=== PATIENT | female | born 1955 | race Caucasian/White ===

== ENCOUNTER → 2016-04-24 | Outpatient (CLI) | payer BC ==
[~2016-04-24] MED LIST: ACET-1256 PO; ANAS1TAB19 PO; ASPI-232 PO; CALC500C70 PO; CLON1TAB3 PO; IBUP-103 PO; MULT-225 PO; OMEP20CA9 PO; ROSU20TA PO; SERT100T PO
--- NOTE | 2016-04-24 14:47 | DIAGNOSTIC IMAGING REPORT ---
RIGHT KNEE 3 VIEWS CLINICAL HISTORY: RIGHT KNEE PAIN Right pain COMPARISON: None. DISCUSSION: The bones and joint spaces appear intact. There is no evidence of fracture, dislocation or bony disease. There is no evidence for soft tissue swelling. IMPRESSION: Negative study. Electronically signed by: Percy Hinojosa M.D. 04/24/2016 2:45 PM Dictated Date/Time: 04/24/2016 2:45 PM
== END | disposition home or self-care (01) ==
LOC: C.RDSM 13:24
PROVIDERS: ATTEND Family Medicine
DX: M25.561 Pain in right knee (principal)

== ENCOUNTER → 2016-04-29 | Outpatient (CLI) | payer BC ==
[~2016-04-29] MED LIST changes: +GADAVIST IV PRN
--- NOTE | 2016-04-30 12:32 | MAMMOGRAPHY REPORT ---
BREAST MRI OF BOTH BREASTS : 04/29/2016 CLINICAL HISTORY: 60-year-old woman presents for follow-up in the breasts. She is status post left breast lumpectomy and radiation for multifocal breast cancer; surgery was performed February 2015. COMPARISON: Comparison is made to exams dated: 01/28/2016 mammogram, 02/09/2015 breast MRI, 6 breast MRI, 01/24/2015 mammogram, 01/24/2015 ultrasound biopsy, and 01/15/2015 ultrasound - [facility]. TECHNIQUE: Using a 1.5 Fernanda magnet and dedicated breast coil, multisequence axial images were obtai isidra through the breasts. After uneventful IV administration of 8 mL of Gadavist, dynamic multiphase contrast-enhanced axial images, and sagittal postcontrast were obtained. Temporal subtraction axia l images and 3-D MIP images are provided. Everything was then reviewed on a 3-D workstation, [employer]. FINDINGS: Right breast: There is minimal background parenchymal enhancement. 2 nonenhancing circumscribed oval and lobulated masses are again identified in the right breast. The first measures approximately 10 mm and is located in the 9:30 to 10:00 middle one third of the right breast. The second is in the retroareolar breast measuring 6 mm. When comparing to prior available MRIs, these haven't stable da ting back to the 02/09/2015 and are most likely benign. Another 12 month follow-up exam is recommen ded to ensure at least 2 years of stability. No other new suspicious enhancing mass, non-mass enhan cement or suspicious kinetics is identified within the right breast. There is no focal skin thicken ing or nipple retraction. No right axillary lymphadenopathy. Note is made of susceptibility artifa ct in the far superior medial right breast from the patient's Mediport. Left breast: There is minimal background parenchymal enhancement. There is evidence of previous ana laura atment of the left breast, with mild diffuse skin thickening and trabecular edema. A surgical cavit y is seen in the 12:00 and 11:00 axes of the middle and posterior left breast, which is decreasing i n size compared to the most recent prior MRI compatible with an evolving postsurgical seroma and/or hematoma. There is no evidence of a suspicious enhancing mass, non-mass enhancement or suspicious k inetics within the left breast. A few morphologically normal lymph nodes are seen in the far latera l axillary tail region of the left breast. These are also stable compared to prior MRIs. There is no suspicious left axillary lymphadenopathy. IMPRESSION: ACR-BI-RADS CATEGORY 3: PROBABLY BENIGN 1. There are expected/evolving post therapeutic changes in the left breast, without MRI evidence of malignancy. 2. There are two circumscribed lobulated masses within the right breast, in the retroareolar axis a nd 9:30 to 10:00 axis. These are stable dating back to 02/09/2015, therefore probably benign. Espinal corky, another 12 month follow-up breast MRI is recommended to ensure longer stability in the right br east, and also to ensure stability in the left breast status post treatment for breast cancer. Cont inuation of interval diagnostic mammography is also recommended. The patient will receive written notification of the results. Laureen Blanca M.D. 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
== END ==
LOC: C.MRI 06:39
PROVIDERS: ATTEND Surgery
DX: C50.212 Malignant neoplasm of upper-inner quadrant of left female breast (principal)

== ENCOUNTER → 2016-06-25 | Outpatient (CLI) | payer BC ==
[~2016-06-25] MED LIST changes: -GADAVIST IV PRN
[2016-06-25 14:38] VITALS: BP 112/57; PULSE 88; TEMP 36.6; O2SAT 96
--- NOTE | 2016-06-25 17:00 | Radiation Oncology Follow-Up ---
Radiation Oncology Follow-Up Date of Visit Jun 25, 2016. Reason For Visit 6 month follow-up Radiation Completion Date finished 10-22-2015 Diagnosis (1) Breast cancer of upper-inner quadrant of left female breast Status: Resolved Onset Date: 01/24/2015 Histology Subtype: lobular and ductal Stage: l (A multifocal) Permanent Comment: Family history of breast cancer Abnormal left breast mammogram Status post ultrasound-guided biopsy 01/24/2015 revealing infiltrating lobular carcinoma Estrogen receptor positive, progesterone receptor positive, HER-2/chandrakant positive Status post partial mastectomy and sentinel lymph node biopsy 02/23/2015 3 separate lesions identified multifocal disease 2 lesions were lobular carcinoma and one was ductal Oncotype DX evaluation scores 29, 14, and 9 Status post systemic chemotherapy with 6 cycles of TCH Will continue Herceptin for 1 year Status post completion of radiation therapy 10/22/2015 received 6240 cGy Last Edited By: Rena Holt on Dec 13, 2015 11:52 History of Present Illness Ms. Qureshi is a 59-year-old female with a family history of breast cancer. She was followed with screening mammograms that have been unremarkable. On 10/17/2013 patient underwent bilateral digital diagnostic mammogram and targeted bilateral ultrasound. A focal asymmetry had been seen previously in the middle one third of the right breast that was not felt to be significant. There were stable loosely grouped rounded microcalcifications in the medial anterior right breast which on changed and likely benign. A nodular asymmetry within the left superior breast and left lateral breast were compatible with overlapping fibroglandular tissue. This was felt to be probably benign with recommended short-term follow-up. On 05/16/2014 patient underwent bilateral digital diagnostic mammogram and targeted left breast ultrasound. This showed a hypoechoic solid 8 mm mass in the left breast at 2:30 position which correlates with the mammographic asymmetry. This was thought to possibly represent a fibroadenoma. An ultrasound- guided core needle biopsy was recommended. A small 4 mm hypoechoic mass in the left breast at 2 o'clock position likely represents a cyst with recommended aspiration. On 06/01/2014 patient underwent an ultrasound-guided biopsy of the left breast. This revealed a fibroadenoma. Case: [id number]. And aspiration of the left breast also performed on 06/01/2014. The aspirate confirmed the cystic nature of this lesion and no further workup was recommended. Recommended repeat mammogram in 6 months. On 01/15/2015 patient underwent unilateral left digital diagnostic mammogram and targeted left breast ultrasound. This revealed a newly visualized spiculated 7 mm mass in the left superior posterior breast mammographically. A 7 mm hypoechoic mass was seen in the left breast 11 o'clock position on ultrasound correlating to the spiculated mass. Another questionable 5 mm mass was seen in the left breast at the 12 o'clock position and 2 areas of possible architectural distortion are also seen in the left breast on spot compression cc views. These were felt to be moderate suspicion for malignancy and given a BI-RADS Category 4 cc with recommended biopsy. On 01/24/2015 patient underwent an ultrasound-guided biopsy of the left breast 11 o'clock position. This identified an infiltrating lobular carcinoma histologic grade 2 of 3. The tumor measured up to 0.7 cm a core biopsy. No DCIS or LCIS was identified. Lymphovascular invasion was identified. Estrogen receptors were positive (90%, strong). Progesterone receptors were positive (90%, strong). HER-2/chandrakant overexpression was equivocal 2+ ) week, 40%, the HER-2/chandrakant by FISH analysis was negative. Case: [id number]. The patient was seen by Dr. Zhao Chirinos to discuss the surgical treatment options. He recommended further evaluation of the breast tissue with lateral breast MRIs. These were performed on 02/09/2015. This also showed an enhancing 7 mm mass in the left breast at the 11:00 posterior depth consistent with the biopsy-proven malignancy. Multiple, at least 4, other irregular enhancing masses are noted in the left upper inner quadrant from the 10 to 12 o'clock position which are highly suspicious for multifocal malignancy. Recommend second look ultrasound and possible ultrasound-guided biopsies of these masses in order to determine the extent of the disease if breast conserving therapy was being considered. In enhancing 4 mm focus was noted in the left breast at the 2 o'clock position which may represent normal background. There was no evidence on MRI of malignancy in the right breast. The patient after discussion of the treatment options ultimately agreed to proceed with a breast conserving therapy.. This procedure was performed on 02/23/2015. A partial mastectomy of the left breast and sentinel node biopsy was performed. The partial mastectomy specimen confirmed multifocal infiltrative lobular carcinoma grade 1. 3 separate lesions were identified. These were distinct and consistent with multifocal disease. One measured 1.0 x 0.7 x 0.5 cm and was an infiltrative lobular carcinoma. The second measured 0.8 x 0.5 x 0.5 cm and also was an infiltrative lobular carcinoma. The third lesion was 0.4 cm and was an infiltrative ductal carcinoma versus lobular. There was no DCIS present. There was DCIS identified area in the margins were evaluated. The lobular carcinoma was present 1 mm from the black inked deep margin of the specimen. The second lesion was located 0.5 cm from the black inked deep margin of the specimen. The carcinoma field to extend to the actual inked margins. There was no lymphovascular or perineural invasion. One sentinel lymph node was identified and showed no evidence of metastatic disease. Evaluations of the foci of carcinomas and blocks B 4 and B 7 for HER-2/chandrakant amplification by FISH was performed. These results were positive for the B 4 Loc and negative for the B 7 block. Therefore the lesion measuring 0.8 x 0.5 x 0.5 cm representing an infiltrative lobular carcinoma was positive for estrogen, progesterone and HER-2/chandrakant protein. Case: [id number]. Patient was seen by Dr. Kinsey for oncologic evaluation of adjuvant therapy. Based on the histology he was thinking that the patient would need anti-hormonal adjuvant therapy however he suggested Oncotype analysis of each of these 3 lesions to rule out potentially more aggressive disease. These results are pending. The patient was also tested BRCA1 and BRCA2 with the results of this also pending. We were asked to see the patient to discuss the potential adjuvant radiation. It is for this reason the patient was seen in referral. Oncotype DX testing was performed on all 3 lesions. These were found to be 29, 14, and 9. She was seen by Dr. Kinsey and the decision was to receive chemotherapy. She received 6 cycles of TCH. These were given every 3 weeks. She'll continue on Herceptin for 1 year. She did develop neuropathy. She feels this is steadily improving and is now minimal. She had changes of the fingernails as well as alopecia. She did require fluids 2 days after each treatment. With this she had minimal nausea and only one episode of vomiting. Bowel habits. Bladder back to normal. She doesn't experience any thrush or mouth ulcerations. With the last treatment she stated she had some soreness of the throat. She underwent the bracket testing which was found to be negative for one and 2. She was hospitalized August 05 to the for fever of unknown origin. She had weakness, rigors, shortness of breath. She didn't have neutropenia due to the prophylaxis with Neulasta. She then returned to our office to complete radiation therapy. She completed radiation therapy 10/22/2015. She received 6240 cGy. Interim History She's been doing well over the past 6 months. She denies any changes to her breast. She has noted no masses or tenderness and no change of the axilla. She 's had no swelling of her arm. She is on Arimidex. She does feel that she has increased his joint pain and discomfort. She is currently receiving physical therapy for discomfort that she is having in her medial knee area bilaterally. She did try stopping the medication for one month. That did not affect her discomfort so she did restart the medication. She is up-to-date on mammography. She continues follow-up with Dr. Chirinos. She recently had her port removed 05/08/2016. Allergies Coded Allergies: No Known Allergies (Unverified , 08/06/15) Home Medications Scheduled Acetaminophen (Tylenol), 1,000 MG PO prn Anastrozole (Arimidex), 1 TAB PO DAILY Aspirin (Aspir-81), 1 TAB PO DAILY Calcium/Vitamin D (Os-Gordon 500 Plus D), 1 TAB PO DAILY Clonazepam (Klonopin), 1 MG PO DAILY Multiple Vitamin (Multi-Day Vitamins), 1 TAB PO DAILY Rosuvastatin Calcium (Crestor), 1 TAB PO DAILY Sertraline Hcl (Zoloft), 200 MG PO DAILY Scheduled PRN Ibuprofen Tab (Advil), 400 MG PO for Pain Review of Systems Gastrointestinal: Symptoms: WNL Oral: Other Oral Symptoms: occ difficulty swallowing - takes zantac Respiratory: Symptoms: WNL Urinary: Symptoms: WNL Skin: Symptoms: No Problems Breast: Right Upper Arm Measurement: 31.0 Right Mid Arm Measurement: 23.9 Right Wrist Measurement: 16.4 Left Upper Arm Measurement: 30.5 Left Mid Arm Measurement: 22.8 Left Wrist Measurement: 16.0 Arm Dominence: Right Patient Cosmetic Evaluation: Excellent Staff Cosmetic Evalaluation: Excellent Physical Exam Vital Signs Date Time Temp Pulse Resp B/P Pulse Ox O2 Delivery O2 Flow Rate FiO2 06/25/16 14:38 36.6 88 20 112/57 96 Pain: Side: Bilateral Patient Pain Scale: 0 - 10 Initial Pain Intensity: 0.0 Fatigue: None General Appearance: no apparent distress Eyes: normal inspection, EOMI ENT: normal ENT inspection, hearing grossly normal Neck: no adenopathy, thyroid normal Respiratory/Chest: lungs clear, no respiratory distress, no accessory muscle use Breast: She has well-healed incisions of the left breast. There are no masses or tenderness no axillary adenopathy. She has no edema. There is mild area of deficit in the upper inner quadrant of the breast. She has no telangiectasia. She has no nipple changes. Using the Acworth score cosmesis she has a good outcome. The right breast showed no masses or tenderness and no axillary adenopathy. Cardiovascular: regular rate, rhythm, no gallop, no murmur Extremities: no pedal edema Neurologic/Psychiatric: no motor/sensory deficits, alert, normal mood/affect Skin: warm/dry Laboratory Studies Test 04/11/16 08:12 White Blood Count 7.61 K/uL (4.8-10.8) Red Blood Count 4.75 M/uL (4.2-5.4) Hemoglobin 14.1 g/dL (12.0-16.0) Hematocrit 40.1 % (37-47) Mean Corpuscular Volume 84.4 fL (80-100) Mean Corpuscular Hemoglobin 29.7 pg (25-34) Mean Corpuscular Hemoglobin Concent 35.2 g/dl (32-36) Platelet Count 126 K/uL (130-400) Mean Platelet Volume 10.4 fL (7.4-10.4) Neutrophils (%) (Auto) 75.2 % Lymphocytes (%) (Auto) 17.6 % Monocytes (%) (Auto) 5.0 % Eosinophils (%) (Auto) 2.0 % Basophils (%) (Auto) 0.1 % Neutrophils # (Auto) 5.72 K/uL (1.4-6.5) Lymphocytes # (Auto) 1.34 K/uL (1.2-3.4) Monocytes # (Auto) 0.38 K/uL (0.11-0.59) Eosinophils # (Auto) 0.15 K/uL (0-0.5) Basophils # (Auto) 0.01 K/uL (0-0.2) RDW Standard Deviation 40.4 fL (36.4-46.3) RDW Coefficient of Variation 13.2 % (11.5-14.5) Immature Granulocyte % (Auto) 0.1 % Immature Granulocyte # (Auto) 0.01 K/uL (0.00-0.02) Sodium Level 143 mmol/L (136-145) Potassium Level 3.9 mmol/L (3.5-5.1) Chloride Level 108 mmol/L (98-107) Carbon Dioxide Level 25 mmol/L (21-32) Anion Gap 10.0 mmol/L (3-11) Blood Urea Nitrogen 13 mg/dl (7-18) Creatinine 0.94 mg/dl (0.60-1.20) Est Creatinine Clear Calc Drug Dose 66.8 ml/min Estimated GFR () 76.4 Estimated GFR (Non- 65.9 BUN/Creatinine Ratio 13.7 (10-20) Random Glucose 84 mg/dl (70-99) Calcium Level 9.5 mg/dl (8.5-10.1) Magnesium Level 2.1 mg/dl (1.8-2.4) Total Bilirubin 0.2 mg/dl (0.2-1) Aspartate Amino Transferase (AST) 24 U/L (15-37) Alanine Aminotransferase (ALT) 36 U/L (12-78) Alkaline Phosphatase 98 U/L (45-117) Lactate Dehydrogenase 189 U/L (84-246) Total Protein 6.9 gm/dl (6.4-8.2) Albumin 3.6 gm/dl (3.4-5.0) Globulin 3.3 gm/dl (2.5-4.0) Albumin/Globulin Ratio 1.1 (0.9-2) Assessment & Plan Plan: Continue regular follow-up with Dr. Chirinos, Dr. Kinsey, her primary care physician. She continues follow-up with Dr. Zambrano. She is scheduled for her next mammogram 07/28/2016. We'll continue imaging as recommended by radiology. We asked her to return to our office in 1 year. She may call if she has any questions or concerns in the interim. Total Time In Follow-Up I spent 20 minutes speaking to the patient and performing examination. I spent 15 minutes reviewing information in completing this note. Copy To Beau Cm MD; Zhao Chirinos M.D.; Sameer Kinsey D.O.; Anup Bales M.D.
== END | disposition home or self-care (01) ==
LOC: C.ONC 14:31
PROVIDERS: ATTEND Physician Assistant Medical
DX: Z08 Encounter for follow-up examination after completed treatment for malignant neoplasm (principal); Z92.3 Personal history of irradiation; Z85.3 Personal history of malignant neoplasm of breast

== ENCOUNTER → 2016-07-28 | Outpatient (CLI) | payer BC ==
[~2016-07-28] MED LIST changes: -OMEP20CA9 PO
--- NOTE | 2016-07-28 14:26 | MAMMOGRAPHY REPORT ---
UNILATERAL LEFT DIGITAL DIAGNOSTIC MAMMOGRAM TOMOSYNTHESIS WITH CAD AND TARGETED LEFT ULTRASOUND: 07/28/2016 CLINICAL HISTORY: 60-year-old woman with a personal history of left breast cancer diagnosed in 2014, status post breast conservation therapy. She presents for [facility] TECHNIQUE: Left CC and MLO to the digital and tomosynthesis images, spot magnification left CC and M L views were obtained. Current study was also evaluated with a Computer Aided Detection (CAD) mere boyd COMPARISON: Comparison is made to exams dated: 04/29/2016 breast MRI, 01/28/2016 mammogram, 08/21/2015 breast MRI, 02/09/2015 breast MRI, 01/24/2015 mammogram, and 01/24/2015 ultrasound biopsy - [facility]. BREAST COMPOSITION: The tissue of the left breast is heterogeneously dense, which may obscure small masses. FINDINGS: There is persistent density, expected architectural distortion and surgical clips in the 12:00 posterior left breast, at the site of prior lumpectomy. 2 linear scar markers are identified overlying the 12:00 left breast and left axilla. There is a stable ribbon shaped metallic biopsy ma rker in the upper outer middle one third of the left breast, denoting the site of prior benign biops y. On the left MLO view, projecting over the pectoralis muscle, there are 2 circumscribed masses. The larger, more posterior measures 5.2 mm, and the smaller anterior and superior mass measures 3.6 mm. These could represent lymph nodes but further evaluation with ultrasound was performed. No oth er new mass, focal area of architectural distortion or suspicious microcalcifications are seen. The re are scattered benign-appearing round and punctate microcalcifications in the visualized left arcelia st. Targeted ultrasound was performed throughout the superior left breast. A few morphologically normal lymph nodes are seen in the 3:00 left breast, 9 cm from the nipple and 2:00 left breast, 9 cm from the nipple. These could represent the lymph nodes seen projecting over the pectoralis muscle on the MLO view. In the 2:00 left breast, 5 cm from the nipple, a rounded solid hypoechoic mass with inte rnal biopsy marker is identified, measuring 6.1 x 5.8 x 7.9 mm. Based on a prior ultrasound dated 0 05/16/2014, this measured 7.7 x 5.1 x 7.8 mm and is considered stable. There is an angular hypoechoi c lesion in the 12:00 left breast, 4 cm from the nipple, measuring 6.0 x 2.8 x 4.3 mm. This is inde terminate, warranting definitive characterization with tissue sampling. An evolving post surgical s eroma and/or hematoma is identified in the 10:00 left breast along the skin surgical scar. This is benign. IMPRESSION: ACR BI-RADS CATEGORY 4: SUSPICIOUS, TARGETED ULTRASOUND ACR BI-RADS CATEGORY 4: SUSPICI OUS 1. Ultrasound guided core needle biopsy is recommended for an indeterminate angular 6 mm hypoechoic mass in the 12:00 left breast, 4 cm from the nipple. 2. Small subcentimeter circumscribed masses projecting over the left pectoralis muscle on the MLO v iew are thought to correlate with morphologically normal intramammary lymph nodes seen in the 2:00 a nd 3:00 axes of the left breast on ultrasound. These results and recommendations were discussed with the patient at the time of the exam. She tent atively scheduled the left breast biopsy prior to leaving our department. Approximately 10% of breast cancers are not detected with mammography. A negative mammographic repor t should not delay biopsy if a clinically suggestive mass is present. Laureen Blanca M.D. ay/:07/28/2016 12:04:52 Document Management Analyst: Tosha Young, [facility] letter sent: Abnormal 4/5 BI-RADS Code: ACR BI-RADS Category 4: Suspicious Ultrasound BI-RADS: ACR BI-RADS Category 4: Suspic ious
== END | disposition home or self-care (01) ==
LOC: C.MAMM 07:53
PROVIDERS: ATTEND Physician Assistant Medical
DX: N63 Unspecified lump in breast (principal); Z85.3 Personal history of malignant neoplasm of breast

== ENCOUNTER → 2016-08-05 | Outpatient (CLI) | payer BC ==
--- NOTE | 2016-08-05 11:57 | Discharge Instructions ---
Discharge Instructions Procedure Procedure Date: August 05, 2016. Reason for visit: Left Mass. Discharge Discharge Date: August 05, 2016. Discharge Diagnosis: post left breast ultrasound guided core biopsy Medications Restart Stopped Medication(s): May restart Aspirin today Instructions Activity Recommendations: Additional Limitations (see below) Return to School/Work: no limitations Recommended Home Diet: No Limitations Provider Instructions: ACTIVITY RECOMMENDATIONS: * No lifting, pushing, pulling or exercising the affected side for three days. RETURN TO SCHOOL/WORK: * You may return to work/school after the procedure, but do not perform any strenuous activities for 24 to 48 hours. MEDICATIONS: * Tylenol (two 325 mg) every four to six hours if needed for mild pain (if not allergic to Tylenol). DIET: * Resume previous diet. SPECIAL CARE INSTRUCTIONS: * Keep biopsy site dry for 24 hours. May shower after 24 hours, but do not soak (bathe) incision. * May remove Tegaderm (plastic patch) tomorrow AFTER showering. * Leave the steri-strips on for one week. Allow the steri-strips to fall off by themselves. If not off after one week, you may remove them. You may place a Bandaid crosswise over the strips, if desired. * Apply ice 10 minutes on and 10 minutes off as needed. * Wear a bra at bedtime to sleep more comfortably for 2-3 days. * Your referring physician should have the results after approximately 5 to 7 business days. * Call for unusual bleeding, fever, drainage, etc or if you have any questions call [phone] during normal business hours or after hours call Dr Blanca, . FOLLOW UP VISIT: Follow-up with Referring Physician as scheduled. Allergies Coded Allergies: No Known Allergies (Unverified , 08/06/15) Portillo De Souza Recommendations: Call your doctor if: * Temperature above 101 degrees * Pain not relieved by pain medicine ordered * There is increased drainage or redness from any incision * You have any unanswered questions or concerns. Your Doctors Instructions noted above were prepared by provider Laureen Blanca. Patient Signature Section: Patient Instructions Signature Page Izabel Qureshi Patient (or Guardian) Signature/Date: I have read and understand the instructions given to me by my caregivers. Caregiver/RN/Doctor Signature/Date: The above-named patient and/or guardian has received patient instructions on this date. + Original Patient Signature Page (only) stays with chart. Please make copy for patient.
--- NOTE | 2016-08-05 13:16 | MAMMOGRAPHY REPORT ---
ULTRASOUND GUIDED BIOPSY LEFT BREAST: 08/05/2016 CLINICAL HISTORY: Indeterminate lobulated hypoechoic mass in the 12:00 left breast, 4 cm from the ni pple. Personal history of left breast cancer status post lobectomy and radiation. Patient presents for ultrasound guided core needle biopsy. COMPARISON: Comparison is made to exams dated: 07/28/2016 ultrasound, 07/28/2016 mammogram, 01/28/2016 m ammogram, 01/24/2015 mammogram, 01/15/2015 ultrasound, and 01/15/2015 mammogram - [facility]. PATIENT CONSENT: The procedure, risks and benefits were discussed with the patient and informed writ ten consent was obtained. Specific risks to this procedure include: bleeding, infection, puncture of adjacent structure, nontarget biopsy, sampling error, metal allergy and medication reaction. PROCEDURE DESCRIPTION: A time out was performed and the left breast was agreed as the site of biopsy . The skin was prepped and draped in the usual sterile fashion. The solid lobulated mass in the 12:0 0 left breast was chosen as the target for biopsy. Subcutaneous and intraparenchymal 1% buffered lid ocaine was administered as local anesthesia. A skin incision was made. Through the incision, 5 samp les were taken with a 14 gauge Achieve biopsy device. A wing-shaped metallic marker was placed at th e biopsy site. Hemostasis was achieved after manual compression. The patient tolerated the procedure well and there was no immediate complication. The samples were sent to the pathology department in an appropriately labeled container. Postprocedure left CC and ML tomosynthesis images were obtained. There is a new wing-shaped metalli c biopsy marker in the 12:00 to 1:00 middle one third of the left breast, at the site of the biopsie d hypoechoic mass seen on ultrasound. Also noted is a stable ribbon shaped metallic biopsy marker i n the lateral left breast and surgical clips in the far posterior 12:00 breast. IMPRESSION: ULTRASOUND GUIDED BIOPSY Status post ultrasound guided core needle biopsy of an indeterminate solid appearing hypoechoic mass in the 12:00 to 1:00 left breast, with wing-shaped biopsy marker placed at the site. The patient will receive notification of the biopsy results from the referring physician. Laureen Blanca M.D. ay/:08/05/2016 12:51:12 Physician Specialist: Kimberly GUALLPA(R)(M), [facility]
--- NOTE | 2016-08-05 13:16 | MAMMOGRAPHY REPORT ---
UNILATERAL LEFT DIGITAL DIAGNOSTIC MAMMOGRAM TOMOSYNTHESIS: 08/05/2016 CLINICAL HISTORY: Status post ultrasound guided core needle biopsy of a hypoechoic mass in the 12:00 left breast. Personal history of left breast cancer status post breast conservation therapy. Please refer to the report from left breast ultrasound guided core biopsy performed at the same time for full detail. IMPRESSION: POST PROCEDURE IMAGING FOR MARKER PLACEMENT Please refer to the report from left breast ultrasound guided core biopsy performed at the same time for full detail. Approximately 10% of breast cancers are not detected with mammography. A negative mammographic repor t should not delay biopsy if a clinically suggestive mass is present. Laureen Blanca M.D. ay/:08/05/2016 12:48:45 Management Analyst: Kimberly BLACK)(Cherrie), [facility] BI-RADS Code: Post Procedure Imaging For Marker Placement
== END | disposition home or self-care (01) ==
LOC: C.MAMM 11:01
PROVIDERS: ATTEND Physician Assistant Medical
DX: D24.2 Benign neoplasm of left breast (principal)

== ENCOUNTER → 2016-08-26 | Outpatient (CLI) | payer BC ==
--- NOTE | 2016-08-26 13:47 | DIAGNOSTIC IMAGING REPORT ---
CHEST 2 VIEWS ROUTINE CLINICAL HISTORY: ACCIDENTAL FALL, CHEST PAIN COMPARISON STUDY: Chest radiograph August 06, 2015. FINDINGS: No pneumothorax or pleural effusion is present. There is no evidence of pulmonary edema. Borderline cardiomegaly is noted. There is mild lingular opacity. Right lung is clear. Calcified gallstone is noted within the gallbladder. There are post surgical findings with the left breast. IMPRESSION: 1. Mild lingular opacity. This is nonspecific and differential considerations include atelectasis, a small area of pneumonia and postradiation change. Radiographic follow up to ensure resolution is recommended. 2. No pneumothorax. Electronically signed by: Nba Berg M.D. 08/26/2016 1:46 PM Dictated Date/Time: 08/26/2016 1:43 PM
== END | disposition home or self-care (01) ==
LOC: C.RAD1850 13:28
PROVIDERS: ATTEND Nurse Practitioner Family
DX: R07.9 Chest pain, unspecified (principal); W10.1XXA Fall (on)(from) sidewalk curb, initial encounter

== ENCOUNTER → 2017-01-29 | Outpatient (CLI) | payer BC ==
--- NOTE | 2017-01-29 14:55 | MAMMOGRAPHY REPORT ---
BILATERAL DIGITAL DIAGNOSTIC MAMMOGRAM TOMOSYNTHESIS WITH CAD: 01/29/2017 CLINICAL HISTORY: History of left breast cancer diagnosed January 2015 status post lumpectomy and ra diation therapy as well as chemotherapy. Also with recent ultrasound guided core needle biopsy of a left 12:00 breast mass July 2016 which yielded benign pathology. The patient reports no current breas t complaints. TECHNIQUE: Breast tomosynthesis in addition to standard 2D mammography was performed. Current study was also evaluated with a Computer Aided Detection (CAD) system. Bilateral CC and MLO 2-D and tomosy nthesis images and spot magnification left CC and ML views were obtained. COMPARISON: Comparison is made to exams dated: 07/28/2016 mammogram, 08/05/2016 mammogram, 01/28/2016 ma mmogram, 05/16/2014 mammogram, 10/17/2013 mammogram, and 09/29/2013 mammogram - [facility]ter. BREAST COMPOSITION: The tissue of both breasts is heterogeneously dense, which may obscure small mas ses. FINDINGS: There are stable postoperative changes in the left superior breast from prior lumpectomy, including stable density, architectural distortion, and surgical clips at the lumpectomy bed. A line ar scar marker overlies the left 12:00 breast. Spot magnification views of the lumpectomy bed demons trate no suspicious masses or clusters of microcalcifications. The remainder of both breasts are stable compared to prior exams, without suspicious masses, calcific ations, or areas of architectural distortion noted. 2 biopsy marker clips are again noted within the left upper outer quadrant from prior benign biopsies. Scattered bilateral benign-appearing calcific ations are not significantly changed. Ovoid 8 mm asymmetry within the right inferior breast middle d epth on the MLO view is stable compared to prior exams including the 2009 and 2014 exams, and conside red benign given long-term stability. IMPRESSION: ACR BI-RADS CATEGORY 2: BENIGN Stable posttreatment changes in the left breast, without mammographic evidence of malignancy in eithe r breast. Recommend routine bilateral tomosynthesis mammograms in one year; I would recommend the pa tient remain a diagnostic patient in case additional views or ultrasound need to be performed. Addit ionally, the patient is due for follow-up MRI April 2017. The patient has been verbally notified of the results. Approximately 10% of breast cancers are not detected with mammography. A negative mammographic report should not delay biopsy if a clinically suggestive mass is present. Chelle Meyer M.D. ah/:01/29/2017 10:20:26 Technical Support Representative: Nusrat GUALLPA(Jamison)(Cherrie), [facility] letter sent: Normal 1/2 BI-RADS Code: ACR BI-RADS Category 2: Benign
== END | disposition home or self-care (01) ==
LOC: C.MAMM 09:39
PROVIDERS: ATTEND Surgery
DX: Z85.3 Personal history of malignant neoplasm of breast (principal); Z98.890 Other specified postprocedural states

== ENCOUNTER → 2017-02-20 | Outpatient (CLI) | payer BC ==
--- NOTE | 2017-02-20 12:12 | DIAGNOSTIC IMAGING REPORT ---
CHEST 2 VIEWS ROUTINE CLINICAL HISTORY: FEMALE BREAST CANCER R50.812 breast carcinoma COMPARISON STUDY: 08/26/2016 FINDINGS: Previous described left lung opacity is diminished. Nevertheless, there is a residual density of the left midlung measuring 11 x 9 mm. Lungs otherwise are clear. Diaphragms are smooth. Costophrenic angles are sharp. Probable gallstone the right upper quadrant. IMPRESSION: 1. Residual nodular density left midlung measuring 11 by [address] chest is recommended as follow-up. The above report was generated using voice recognition software. It may contain grammatical, syntax or spelling errors. Electronically signed by: Percy Hinojosa M.D. 02/20/2017 12:11 PM Dictated Date/Time: 02/20/2017 12:09 PM
== END | disposition home or self-care (01) ==
LOC: C.RAD 11:18
PROVIDERS: ATTEND Nurse Practitioner Family
DX: C50.812 Malignant neoplasm of overlapping sites of left female breast (principal); R91.8 Other nonspecific abnormal finding of lung field

== ENCOUNTER → 2017-03-05 | Outpatient (CLI) | payer BC ==
[~2017-03-05] MED LIST changes: +OPTIRAY 320 IV PRN
--- NOTE | 2017-03-05 11:14 | DIAGNOSTIC IMAGING REPORT ---
(CHEST) THORAX WITH CT DOSE: 262.78 mGy.cm HISTORY: Breast carcinoma FEMALE BREAST CA TECHNIQUE: Multiaxial CT images of the chest were performed following the intravenous administration of contrast. A dose lowering technique was utilized adhering to the principles of ALARA. COMPARISON: Chest series 02/20/2017 FINDINGS: Postoperative and posttherapeutic change to the left breast and left anterior chest wall. Findings of focal pleural thickening and interstitial change left midlung. Transaxial image 23 suggests a 9 mm nodular density versus focal extension of the post therapeutic fibrotic change. No additional nodularity is identified. Post therapeutic pleural thickening and interstitial change is noted. No significant mediastinal or hilar adenopathy is present. The lungs otherwise appear clear. Limited evaluation the upper abdomen demonstrates a gallstone within the gallbladder lumen. Mild fatty infiltration of liver is present. IMPRESSION: 1. Postoperative and post therapy change to the left breast and chest wall region as well as the left upper lobe. 2. Focal nodular extension of the fibrotic change versus a free standing nodular density measuring 9 mm of the left midlung region. 3. This statistically is suggestive of post therapeutic change, although a repeat CT study in 6 months is suggested to confirm stability . 4. Alternatively, a PET scan could be considered to exclude a metabolically active lesion. 5. Gallstone. 6. Fatty infiltration of liver. The above report was generated using voice recognition software. It may contain grammatical, syntax or spelling errors. Electronically signed by: Percy Hinojosa M.D. 03/05/2017 11:13 AM Dictated Date/Time: 03/05/2017 11:06 AM
== END | disposition home or self-care (01) ==
LOC: C.CTS 10:34
PROVIDERS: ATTEND Nurse Practitioner Family
DX: C50.812 Malignant neoplasm of overlapping sites of left female breast (principal)

== ENCOUNTER → 2017-05-04 | Outpatient (CLI) | payer OTHER ==
[~2017-05-04] MED LIST changes: +GADAVIST IV PRN; -OPTIRAY 320 IV PRN
--- NOTE | 2017-05-05 12:57 | MAMMOGRAPHY REPORT ---
BREAST MRI OF BOTH BREASTS : 05/04/2017 CLINICAL HISTORY: 61-year-old woman with a personal history of multifocal left breast cancer status p ost breast conservation treatment presents for additional surveillance and to follow-up probably yao villagomez findings in the right breast seen on prior breast MRI. COMPARISON: Comparison is made to exams dated: 08/05/2016 mammogram, 01/29/2017 mammogram, 07/28/2016 ma mmogram, 04/29/2016 breast MRI, 02/09/2015 breast MRI, and 08/21/2015 breast MRI - [facility]. TECHNIQUE: Using a 1.5 Fernanda magnet and dedicated breast coil, multisequence axial images were obtain ed through the breasts. After uneventful IV administration of 8 mL of Gadavist, dynamic multiphase c ontrast-enhanced axial images, and sagittal postcontrast were obtained. Temporal subtraction axial i mages and 3-D MIP images are provided. Everything was then reviewed on a 3-D workstation, [employer]. FINDINGS: Right breast: There is no significant background parenchymal enhancement. Circumscribed nonenhancing oval masses are again identified in the right breast at approximately 9:30 to 10:00 middle one third of the breast and retroareolar middle one third of the breast, measuring 9.5 and 6.3 mm, respectivel y. These have not significantly changed in size or appearance dating back to at least 02/09/2015, an d are therefore considered benign. No new suspicious enhancing masses, non-mass enhancement, archite ctural distortion or suspicious kinetics identified in the right breast. No focal skin thickening or nipple retraction. The retromammary fat is intact. No suspicious right axillary lymphadenopathy. Left breast: There is no significant background parenchymal enhancement. There is expected sharepoint application architect ural distortion and a small, 2.6 cm, residual post surgical seroma and/or hematoma at the surgical si te in the approximate 12:00 middle and posterior left breast, at the site of prior lumpectomy. A sma ll round focus of susceptibility artifact is seen in the upper outer middle one third of the left zaheer ast, at the site of prior benign biopsy which yielded a fibroadenoma. No new suspicious enhancing ma sses, non-mass enhancement, unexpected architectural distortion or suspicious kinetics identified in the left breast. No new focal skin thickening or nipple retraction. No suspicious left axillary lym phadenopathy. Incidental note is made of cholelithiasis and slight dilation of the gallbladder, without definite ev idence of acute cholecystitis. IMPRESSION: ACR BI-RADS CATEGORY 2: BENIGN 1. Stable postsurgical and post biopsy changes in the left breast, without MRI evidence of malignanc y. 2. Stable benign-appearing circumscribed nonenhancing masses in the right breast, that are unchanged comparing to a prior MRI dating back to 2014, therefore considered benign. No MRI evidence of malig almaz in the right breast. 3. Recommend continuation of annual screening mammography schedule and additional yearly surveillanc e with breast MRI as well, given the personal history of multifocal left breast cancer and dense arcelia sts. 4. Incidental note is made of cholelithiasis. The patient will receive written notification of the results. Laureen Blanca M.D. ay/:05/04/2017 16:58:26 Cad Designer Drafter: rn cardiac, [facility] letter sent: Normal 1/2 BI-RADS Code: ACR BI-RADS Category 2: Benign
== END | disposition home or self-care (01) ==
LOC: C.MRI 11:08
PROVIDERS: ATTEND Internal Medicine Hematology & Oncology
DX: C50.512 Malignant neoplasm of lower-outer quadrant of left female breast (principal)

== ENCOUNTER → 2017-06-09 | Outpatient (CLI) | payer OTHER ==
[~2017-06-09] MED LIST changes: -GADAVIST IV PRN; +OPTIRAY 320 IV PRN
[2017-06-09 07:53] LABS: ALBUMIN 3.9 gm/dl (3.4-5.0); ALT/SGPT 22 U/L (12-78); AST/SGOT 15 U/L (15-37); BLOOD UREA NITROGEN 10 mg/dl (7-18); CALCIUM 9.4 mg/dl (8.5-10.1); CARBON DIOXIDE 27 mmol/L (21-32); CREATININE 0.81 mg/dl (0.60-1.20); GLUCOSE 98 mg/dl (70-99); POTASSIUM 3.9 mmol/L (3.5-5.1); SODIUM 139 mmol/L (136-145)
[2017-06-09 07:58] LABS: ALKALINE PHOSPHATASE 85 U/L (45-117); TOTAL PROTEIN 7.2 gm/dl (6.4-8.2)
--- NOTE | 2017-06-09 08:17 | DIAGNOSTIC IMAGING REPORT ---
CT (CHEST) THORAX WITH CT DOSE: 330.68 mGy.cm HISTORY: Breast carcinoma BREAST CA TECHNIQUE: Multiaxial CT images of the chest were performed following the intravenous administration of contrast. A dose lowering technique was utilized adhering to the principles of ALARA. COMPARISON: 03/05/2017 FINDINGS: Stable postoperative changes to the left upper lung and left anterior chest wall. Unchanging pleural based parenchymal scarring with associated slight nodularity. The nodular component most likely represents a localized extension of the post therapeutic scar with no change in maximum diameter at 7.6 mm. Slight interstitial prominence compared to the prior exam. No focal infiltrate. No significant hilar or mediastinal adenopathy. IMPRESSION: 1. Stable appearance to left anterior chest wall as well as the post therapeutic parenchymal scarring and underlying nodularity of the left upper lobe. 2. This is increased likelihood of post therapeutic change rather than true nodularity. 3. Slight nonspecific increase in interstitial markings throughout both hemithoraces. 4. Follow-up scan in 6-12 months or as required clinically is recommended. The above report was generated using voice recognition software. It may contain grammatical, syntax or spelling errors. Electronically signed by: Percy Hinojosa M.D. 06/09/2017 8:16 AM Dictated Date/Time: 06/09/2017 8:08 AM
[2017-06-09 09:29] LABS: BASO % 0.2 %; BASO ABS # 0.01 K/uL (0-0.2); EOS % 1.9 %; EOS ABS # 0.12 K/uL (0-0.5); HEMATOCRIT 42.2 % (37-47); HEMOGLOBIN 14.7 g/dL (12.0-16.0); IG# 0.01 K/uL (0.00-0.02); LYMPH % 26.4 %; LYMPH ABS # 1.65 K/uL (1.2-3.4); MEAN CELL VOLUME 84.6 fL (80-100); MEAN CORPUSCULAR HEMOGLOBIN 29.5 pg (25-34); MEAN CORPUSCULAR HGB CONC 34.8 g/dl (32-36); MEAN PLATELET VOLUME 10.7 fL (7.4-10.4); MONO % 6.2 %; MONO ABS # 0.39 K/uL (0.11-0.59); NEUT % 65.1 %; NEUT ABS # 4.08 K/uL (1.4-6.5); PLATELET COUNT 137 K/uL (130-400); RED CELL DISTRIBUTION WIDTH CV 13.3 % (11.5-14.5); RED CELL DISTRIBUTION WIDTH SD 40.5 fL (36.4-46.3); WHITE BLOOD COUNT 6.26 K/uL (4.8-10.8)
== END | disposition home or self-care (01) ==
LOC: C.CTS 06:59
PROVIDERS: ATTEND Internal Medicine Hematology & Oncology
DX: C50.812 Malignant neoplasm of overlapping sites of left female breast (principal)

== ENCOUNTER → 2017-07-16 | Outpatient (CLI) | payer OTHER ==
[~2017-07-16] MED LIST changes: +EXM/25 PO; -OPTIRAY 320 IV PRN; +PRLSR20 PO
[2017-07-16 14:14] VITALS: BP 124/70; PULSE 72; TEMP 36.4; O2SAT 96
--- NOTE | 2017-07-16 16:34 | Radiation Oncology Follow-Up ---
Radiation Oncology Follow-Up Date of Visit Jul 16, 2017. 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 Status: Resolved Onset Date: 01/24/2015 Histology Subtype: Lobular and ductal Stage: l Permanent Comment: Family history of breast cancer Abnormal left breast mammogram Status post ultrasound-guided biopsy 01/24/2015 revealing infiltrating lobular carcinoma Estrogen receptor positive, progesterone receptor positive, HER-2/chandrakant positive Status post partial mastectomy and sentinel lymph node biopsy 02/23/2015 3 separate lesions identified multifocal disease 2 lesions were lobular carcinoma and one was ductal Oncotype DX evaluation scores 29, 14, and 9 Status post systemic chemotherapy with 6 cycles of TCH Will continue Herceptin for 1 year Status post completion of radiation therapy 10/22/2015 received 6240 cGy Last Edited By: Rena Holt on Dec 13, 2015 11:52 History of Present Illness Ms. Qureshi has with a family history of breast cancer. She was followed with screening mammograms that have been unremarkable. On 10/17/2013 patient underwent bilateral digital diagnostic mammogram and targeted bilateral ultrasound. A focal asymmetry had been seen previously in the middle one third of the right breast that was not felt to be significant. There were stable loosely grouped rounded microcalcifications in the medial anterior right breast which on changed and likely benign. A nodular asymmetry within the left superior breast and left lateral breast were compatible with overlapping fibroglandular tissue. This was felt to be probably benign with recommended short-term follow-up. On 05/16/2014 patient underwent bilateral digital diagnostic mammogram and targeted left breast ultrasound. This showed a hypoechoic solid 8 mm mass in the left breast at 2:30 position which correlates with the mammographic asymmetry. This was thought to possibly represent a fibroadenoma. An ultrasound- guided core needle biopsy was recommended. A small 4 mm hypoechoic mass in the left breast at 2 o'clock position likely represents a cyst with recommended aspiration. On 06/01/2014 patient underwent an ultrasound-guided biopsy of the left breast. This revealed a fibroadenoma. Case: [id number]. And aspiration of the left breast also performed on 06/01/2014. The aspirate confirmed the cystic nature of this lesion and no further workup was recommended. Recommended repeat mammogram in 6 months. On 01/15/2015 patient underwent unilateral left digital diagnostic mammogram and targeted left breast ultrasound. This revealed a newly visualized spiculated 7 mm mass in the left superior posterior breast mammographically. A 7 mm hypoechoic mass was seen in the left breast 11 o'clock position on ultrasound correlating to the spiculated mass. Another questionable 5 mm mass was seen in the left breast at the 12 o'clock position and 2 areas of possible architectural distortion are also seen in the left breast on spot compression cc views. These were felt to be moderate suspicion for malignancy and given a BI-RADS Category 4 cc with recommended biopsy. On 01/24/2015 patient underwent an ultrasound-guided biopsy of the left breast 11 o'clock position. This identified an infiltrating lobular carcinoma histologic grade 2 of 3. The tumor measured up to 0.7 cm a core biopsy. No DCIS or LCIS was identified. Lymphovascular invasion was identified. Estrogen receptors were positive (90%, strong). Progesterone receptors were positive (90%, strong). HER-2/chandrakant overexpression was equivocal 2+ ) week, 40%, the HER-2/chandrakant by FISH analysis was negative. Case: [id number]. The patient was seen by Dr. Zhao Chirinos to discuss the surgical treatment options. He recommended further evaluation of the breast tissue with lateral breast MRIs. These were performed on 02/09/2015. This also showed an enhancing 7 mm mass in the left breast at the 11:00 posterior depth consistent with the biopsy-proven malignancy. Multiple, at least 4, other irregular enhancing masses are noted in the left upper inner quadrant from the 10 to 12 o'clock position which are highly suspicious for multifocal malignancy. Recommend second look ultrasound and possible ultrasound-guided biopsies of these masses in order to determine the extent of the disease if breast conserving therapy was being considered. In enhancing 4 mm focus was noted in the left breast at the 2 o'clock position which may represent normal background. There was no evidence on MRI of malignancy in the right breast. The patient after discussion of the treatment options ultimately agreed to proceed with a breast conserving therapy.. This procedure was performed on 02/23/2015. A partial mastectomy of the left breast and sentinel node biopsy was performed. The partial mastectomy specimen confirmed multifocal infiltrative lobular carcinoma grade 1. 3 separate lesions were identified. These were distinct and consistent with multifocal disease. One measured 1.0 x 0.7 x 0.5 cm and was an infiltrative lobular carcinoma. The second measured 0.8 x 0.5 x 0.5 cm and also was an infiltrative lobular carcinoma. The third lesion was 0.4 cm and was an infiltrative ductal carcinoma versus lobular. There was no DCIS present. There was DCIS identified area in the margins were evaluated. The lobular carcinoma was present 1 mm from the black inked deep margin of the specimen. The second lesion was located 0.5 cm from the black inked deep margin of the specimen. The carcinoma field to extend to the actual inked margins. There was no lymphovascular or perineural invasion. One sentinel lymph node was identified and showed no evidence of metastatic disease. Evaluations of the foci of carcinomas and blocks B 4 and B 7 for HER-2/chandrakant amplification by FISH was performed. These results were positive for the B 4 Loc and negative for the B 7 block. Therefore the lesion measuring 0.8 x 0.5 x 0.5 cm representing an infiltrative lobular carcinoma was positive for estrogen, progesterone and HER-2/chandrakant protein. Case: [id number]. Patient was seen by Dr. Kinsey for oncologic evaluation of adjuvant therapy. Based on the histology he was thinking that the patient would need anti-hormonal adjuvant therapy however he suggested Oncotype analysis of each of these 3 lesions to rule out potentially more aggressive disease. These results are pending. The patient was also tested BRCA1 and BRCA2 with the results of this also pending. We were asked to see the patient to discuss the potential adjuvant radiation. It is for this reason the patient was seen in referral. Oncotype DX testing was performed on all 3 lesions. These were found to be 29, 14, and 9. She was seen by Dr. Kinsey and the decision was to receive chemotherapy. She received 6 cycles of TCH. These were given every 3 weeks. She'll continue on Herceptin for 1 year. She did develop neuropathy. She feels this is steadily improving and is now minimal. She had changes of the fingernails as well as alopecia. She did require fluids 2 days after each treatment. With this she had minimal nausea and only one episode of vomiting. Bowel habits. Bladder back to normal. She doesn't experience any thrush or mouth ulcerations. With the last treatment she stated she had some soreness of the throat. She underwent the bracket testing which was found to be negative for one and 2. She was hospitalized August 05 to the for fever of unknown origin. She had weakness, rigors, shortness of breath. She didn't have neutropenia due to the prophylaxis with Neulasta. She then returned to our office to complete radiation therapy. She completed radiation therapy 10/22/2015. She received 6240 cGy. Interim History She has been doing well over this past year. She denies any changes to her breast. She has noted no masses or tenderness and no change of axilla. She had no swelling of her arm. She is up-to-date on mammography as well as MRIs. As part of her screening follow-up she had a chest CT. There have been some abnormalities and these are being followed. She had a recheck chest CT May. This showed a stable appearance to the left chest wall as well as the post therapeutic parenchymal scarring and underlying nodularity of the left upper lobe. This is increased likelihood of post-therapeutic change rather than true nodularity. Slight nonspecific increase in interstitial markings throughout both lg-thoraces. Follow-up scan in 6-12 months or as required clinically is recommended. Allergies Coded Allergies: No Known Allergies (Unverified , 08/06/15) Home Medications Scheduled Acetaminophen (Tylenol), 1,000 MG PO prn Aspirin (Aspir-81), 1 TAB PO DAILY Calcium/Vitamin D (Os-Gordon 500 Plus D), 1 TAB PO DAILY Clonazepam (Klonopin), 1 MG PO DAILY Exemestane (Aromasin), 25 MG PO DAILY Multiple Vitamin (Multi-Day Vitamins), 1 TAB PO DAILY Omeprazole (Prilosec), 20 MG PO DAILY Rosuvastatin Calcium (Crestor), 1 TAB PO DAILY Sertraline Hcl (Zoloft), 200 MG PO DAILY Scheduled PRN Ibuprofen Tab (Advil), 400 MG PO for Pain Review of Systems Gastrointestinal: Symptoms: WNL Oral: Symptoms: No Problems Other Oral Symptoms: "Always had trouble swallowing" Respiratory: Symptoms: WNL Urinary: Symptoms: WNL Skin: Symptoms: No Problems Breast: Right Upper Arm Measurement: 29.8 Right Mid Arm Measurement: 23.0 Right Wrist Measurement: 16.1 Left Upper Arm Measurement: 31.0 Left Mid Arm Measurement: 23.2 Left Wrist Measurement: 16.1 Arm Dominence: Right Physical Exam Vital Signs Date Time Temp Pulse Resp B/P (MAP) Pulse Ox O2 Delivery O2 Flow Rate FiO2 07/16/17 14:14 36.4 72 16 124/70 96 Fatigue: None General Appearance: no apparent distress Eyes: normal inspection, EOMI ENT: normal ENT inspection, hearing grossly normal Neck: no adenopathy, thyroid normal Respiratory/Chest: lungs clear, no respiratory distress, no accessory muscle use Breast: Breast examination reveals well-healed incisions of the left breast. There are no masses or tenderness and no axillary adenopathy. There are no skin retractions or nipple changes. Using the [place] score cosmesis she has a good outcome. The right breast showed no masses or tenderness and no axillary adenopathy. Cardiovascular: regular rate, rhythm, no gallop, no murmur Extremities: no pedal edema Neurologic/Psychiatric: no motor/sensory deficits, alert, normal mood/affect Skin: warm/dry Pain Management Patient Reports Pain: No Initial Pain Intensity: 0.0 Pain Management Plan She denies pain currently therefore requires no pain management. Laboratory Laboratory Results: not applicable Pathology Pathology Results: were reviewed, and pertinent findings noted in HPI Imaging Imaging Studies: were reviewed, and pertinent findings noted below Imaging Comments BREAST MRI OF BOTH BREASTS : 05/04/2017 CLINICAL HISTORY: 61-year-old woman with a personal history of multifocal left breast cancer status post breast conservation treatment presents for additional surveillance and to follow-up probably benign findings in the right breast seen on prior breast MRI. COMPARISON: Comparison is made to exams dated: 08/05/2016 mammogram, 01/29/2017 mammogram, 07/28/2016 mammogram, 04/29/2016 breast MRI, 02/09/2015 breast MRI, and breast MRI - [facility]. TECHNIQUE: Using a 1.5 Fernanda magnet and dedicated breast coil, multisequence axial images were obtained through the breasts. After uneventful IV administration of 8 mL of Gadavist, dynamic multiphase contrast-enhanced axial images, and sagittal postcontrast were obtained. Temporal subtraction axial images and 3-D MIP images are provided. Everything was then reviewed on a 3-D workstation, [email or web address]. FINDINGS: Right breast: There is no significant background parenchymal enhancement. Circumscribed nonenhancing oval masses are again identified in the right breast at approximately 9:30 to 10:00 middle one third of the breast and retroareolar middle one third of the breast, measuring 9.5 and 6.3 mm, respectively. These have not significantly changed in size or appearance dating back to at least , and are therefore considered benign. No new suspicious enhancing masses, non-mass enhancement, architectural distortion or suspicious kinetics identified in the right breast. No focal skin thickening or nipple retraction. The retromammary fat is intact. No suspicious right axillary lymphadenopathy. Left breast: There is no significant background parenchymal enhancement. There is expected architectural distortion and a small, 2.6 cm, residual post surgical seroma and/or hematoma at the surgical site in the approximate 12:00 middle and posterior left breast, at the site of prior lumpectomy. A small round focus of susceptibility artifact is seen in the upper outer middle one third of the left breast, at the site of prior benign biopsy which yielded a fibroadenoma. No new suspicious enhancing masses, non-mass enhancement, unexpected architectural distortion or suspicious kinetics identified in the left breast. No new focal skin thickening or nipple retraction. No suspicious left axillary lymphadenopathy. Incidental note is made of cholelithiasis and slight dilation of the gallbladder , without definite evidence of acute cholecystitis. IMPRESSION: ACR BI-RADS CATEGORY 2: BENIGN 1. Stable postsurgical and post biopsy changes in the left breast, without MRI evidence of malignancy. 2. Stable benign-appearing circumscribed nonenhancing masses in the right breast, that are unchanged comparing to a prior MRI dating back to 2014, therefore considered benign. No MRI evidence of malignancy in the right breast. 3. Recommend continuation of annual screening mammography schedule and additional yearly surveillance with breast MRI as well, given the personal history of multifocal left breast cancer and dense breasts. 4. Incidental note is made of cholelithiasis. The patient will receive written notification of the results. Laureen Blanca M.D. 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 A dose lowering technique was utilized adhering to the principles of ALARA. COMPARISON: 03/05/2017 FINDINGS: Stable postoperative changes to the left upper lung and left anterior chest wall. Unchanging pleural based parenchymal scarring with associated slight nodularity. The nodular component most likely represents a localized extension of the post therapeutic scar with no change in maximum diameter at 7.6 mm. Slight interstitial prominence compared to the prior exam. No focal infiltrate. No significant hilar or mediastinal adenopathy. IMPRESSION: 1. Stable appearance to left anterior chest wall as well as the post therapeutic parenchymal scarring and underlying nodularity of the left upper lobe. 2. This is increased likelihood of post therapeutic change rather than true nodularity. 3. Slight nonspecific increase in interstitial markings throughout both hemithoraces. 4. Follow-up scan in 6-12 months or as required clinically is recommended. The above report was generated using voice recognition software. It may contain grammatical, syntax or spelling errors. Electronically signed by: Percy Hinojosa M.D. 06/09/2017 8:16 AM Dictated Date/Time: 06/09/2017 8:08 AM Assessment & Plan Plan: Continue with annual mammography and MRIs as scheduled. She should continue with recheck CT scans of the chest. That will be planned in August. These will likely be scheduled following her visit at medical oncologist office. There had been a discussion that the areas of nodularity on the CT of the chest could be related to radiation. These images were reviewed today by Dr. Ray. It is possible that these could be related to the treatment. She should still continue with having a recheck CT of the chest in August. We asked her to return to our office in 1 year. She may call if she has any questions or concerns in the interim. Total Time In Follow-Up I spent 20 minutes speaking to the patient in performing examination. I spent 20 minutes reviewing information, reviewing the images with the physician, and completing this note. Copy To Beau Cm MD; Sameer Kinsey D.O. Problem Qualifiers (1) Breast cancer of upper-inner quadrant of left female breast: Estrogen receptor status: positive Qualified Codes: C50.212 - Malignant neoplasm of upper-inner quadrant of left female breast; Z17.0 - Estrogen receptor positive status [ER+]
== END | disposition home or self-care (01) ==
LOC: C.ONC 14:10
PROVIDERS: ATTEND Physician Assistant Medical
DX: Z08 Encounter for follow-up examination after completed treatment for malignant neoplasm (principal); Z92.3 Personal history of irradiation; Z85.3 Personal history of malignant neoplasm of breast